=== PATIENT | female | born 1950 | race Caucasian/White ===

== ENCOUNTER 2019-12-18 08:14 | Day surgery (SDC) | payer MEDICARE, MEDICAID ==
[2019-12-16 11:48] LABS: CLARITY,URINE SLIGHTLY CLOUDY (Clear); COLOR,URINE STRAW (Yellow); GLUCOSE, URINE NEGATIVE (Neg); KETONES,URINE NEGATIVE (Neg); LEUKOCYTE ESTERASE ,URINE SMALL (Neg); NITRITES, URINE NEGATIVE (Neg); OCCULT BLOOD,URINE TRACE-INTACT (Neg); PROTEIN,URINE NEGATIVE (Neg); UROBILINOGEN,URINE 0.2 E.U/dL (0.2-1.0)
[2019-12-16 12:05] LABS: BASOPHILS # (AUTO) 0.1 X10'3 (0-0.2); BASOPHILS % (AUTO) 1.1 % (0-1); EOSINOPHILS # (AUTO) 0.4 X10'3 (0-0.9); EOSINOPHILS % (AUTO) 4.9 % (0-6); MEAN CORPUSCULAR HEMOGLOBIN 31.2 PG (27.0-31.0); MEAN PLATELET VOLUME 8.3 FL (7.4-10.4); MONOCYTES # (AUTO) 0.5 X10'3 (0-0.9); MONOCYTES % (AUTO) 7.3 % (2-12); NEUTROPHILS # (AUTO) 4.3 X10'3 (1.8-7.7); NEUTROPHILS % (AUTO) 58.7 % (42-75); PRE OP HEMATOCRIT 45.3 % (35.0-45.0); PRE OP HEMOGLOBIN 15.4 g/dL (12.0-16.0); PRE OP PLATELET COUNT 228 X10'3 (140-440); RED BLOOD COUNT 4.93 X10'6 (4.20-5.60); RED CELL DISTRIBUTION WIDTH 14.7 % (11.5-14.5)
[2019-12-16 12:10] LABS: PRE OP PROTIME 10.3 SECONDS (9.0-12.0)
[2019-12-16 12:16] LABS: ALBUMIN 3.6 G/DL (3.4-5.0); ALBUMIN/GLOBULIN RATIO 0.8 (1.1-1.5); ALKALINE PHOSPHATASE 90 IU/L (46-116); BLOOD UREA NITROGEN 11 MG/DL (7-18); BUN/CREATININE RATIO 15.1 (6.6-38.0); CALCIUM 9.2 MG/DL (8.5-10.1); CHLORIDE 103 MMOL/L (99-107); CREATININE 0.73 MG/DL (0.40-0.90); PRE OP ALT 23 U/L (30-65); PRE OP ANION GAP 8 (8-16); PRE OP AST 15 U/L (10-37); PRE OP BILIRUB, TOTAL 0.5 MG/DL (0.0-1.0); PRE OP GLUCOSE 167 MG/DL (70-104); PRE OP POTASSIUM 3.9 MMOL/L (3.4-5.1); PRE OP SODIUM 141 MMOL/L (135-145); TOTAL CARBON DIOXIDE 29.8 MMOL/L (24-32); eGFR 79 ML/MIN
[2019-12-16 13:08] LABS: UA COLLECTION TYPE CLN CATCH MIDSTREAM
[2019-12-16 13:09] LABS: RBC,URINE NONE SEEN /HPF (0-2)
[2019-12-16 13:10] LABS: BACTERIA,URINE FEW /HPF (Neg); SQUAMOUS EPITHELIAL CELL,UR FEW /LPF (FEW)
[2019-12-18] VITALS (8 sets, daily range): BP systolic 119–129; BP diastolic 64–75
[~2019-12-18] VITALS: Ht 154.9 cm; Wt 144.0 kg
[~2019-12-18 08:14] MED LIST: ASPI-611; FURO-150 PO; METF500T PO; POTA8TAB57 PO; albuterol 2.5 MG/3 ML nebule NEB ONE; ceFOXitin sod/dextrose 2g/50ml 50 ML IV ONE; famotidine 20mg tablet PO ONE; ringers solution, lacted 1,000 ML IV SCH
[2019-12-18] MEDS ORDERED: albuterol 2.5 MG/3 ML nebule NEB ONE (10:40)
[2019-12-18] MEDS ORDERED: LIDOcaine 1% 30ml preserv. free vial ONE ×2 (10:59→11:48)
[2019-12-18] MEDS ORDERED: fentaNYL/PF 50MCG/1 ML 2ML syringe ONE (11:36)
[2019-12-18] MEDS ORDERED: MIDAZolam 5mg/5ml vial ONE (11:37)
--- NOTE | 2019-12-18 12:15 | NUR ---
Received from OR via , accompanied by Anesthesiologist TRIP and report given by Anesthesiolgist. AWAKE IN NO RESP DISTRESS USES HOME O2 /. SKIN WARM AND DRY HOB ELEVATED, NO CO PAIN. AJ PAD DI.
[2019-12-18] MEDS ORDERED: ringers solution, lacted 1,000 ML IV SCH (12:33)
[2019-12-18] MEDS ORDERED: morphine 4 MG/ML inj SYRINge IV PRN (12:35)
[2019-12-18] MEDS ORDERED: meperidine/PF 25mg/ml syringe IV PRN ×3 (12:35)
[2019-12-18] MEDS ORDERED: morphine 2 MG/ML inj. syringe IV PRN (12:35)
[2019-12-18] MEDS ORDERED: proCHLORperazine 10 MG/2 ml inj IV PRN (12:35)
[2019-12-18] MEDS ORDERED: ondansetron/PF 4mg/2ml inj IV PRN (12:35)
--- NOTE | 2019-12-18 13:15 | NUR ---
AWAKE VS WNL, NO CO PAIN, AJ PAD DI, TOLERATES COFFEE, NEEDS O2 SUPPLEMENTAL 24/7 SAT = 94%. DISCH INSTR GIVEN TO PT AND UNDERSTOOD. HOME WITH SISTER.
--- NOTE | 2019-12-18 13:15 | NUR ---
DISCH HOME WITH HER OWN O2 TANK.
== END 2019-12-18 13:15 | disposition home or self-care (01) ==
LOC: PAS 08:14
PROVIDERS: ATTEND Obstetrics & Gynecology
DX: N95.0 Postmenopausal bleeding (principal); N88.2 Stricture and stenosis of cervix uteri; R06.02 Shortness of breath; E11.9 Type 2 diabetes mellitus without complications; E66.01 Morbid (severe) obesity due to excess calories; Z68.44 Body mass index [BMI] 60.0-69.9, adult; J44.9 Chronic obstructive pulmonary disease, unspecified; G47.30 Sleep apnea, unspecified; I27.9 Pulmonary heart disease, unspecified; Z79.899 Other long term (current) drug therapy; Z87.891 Personal history of nicotine dependence; Z79.82 Long term (current) use of aspirin; Z79.84 Long term (current) use of oral hypoglycemic drugs; Z90.49 Acquired absence of other specified parts of digestive tract; Z98.890 Other specified postprocedural states
CPT/HCPCS: 36415; 58120; 71046; 80053; 81001; 82948; 85025; 85610; 85730; 86885; 86900; 86901; 87088; 93005; 94060; 94640; J0694; J2001; J2250; J3010; J7120; A4618; A6258

== ENCOUNTER 2023-12-13 08:57 | Outpatient (CLI) | payer MEDICARE, MEDICAID ==
[~2023-12-13] VITALS: Ht 154.9 cm; Wt 131.1 kg
[2023-12-13] VITALS (9 sets, daily range): BP systolic 116–128; BP diastolic 55–82; PULSE 84–98; RESP 14–16; O2SAT 99–100
[~2023-12-13 08:57] MED LIST changes: -POTA8TAB57 PO; +POTA8TAB58 PO; -albuterol 2.5 MG/3 ML nebule NEB ONE; -ceFOXitin sod/dextrose 2g/50ml 50 ML IV ONE; -famotidine 20mg tablet PO ONE; -ringers solution, lacted 1,000 ML IV SCH
[2023-12-13] MEDS ORDERED: aminophylline 250mg/10ml inj. IV PRN (09:50)
[2023-12-13] MEDS ORDERED: normal saline 500ml IV soln 500 ML IV ONE (09:50)
[2023-12-13] MEDS ORDERED: nitroGLYCERIN 0.4mg SUBLingual tab SL PRN (09:50)
[2023-12-13] MEDS: regadenoson 0.4mg/5ml syringe IV ONE (10:51)
== END 2023-12-13 23:59 | disposition home or self-care (01) ==
LOC: RAD 08:57
PROVIDERS: ATTEND Internal Medicine Interventional Cardiology
DX: R06.02 Shortness of breath (principal)
CPT/HCPCS: 78452; 93017; A9500; J2785; J7040; J0280